=== PATIENT | male | born 1980 | race Native Hawaiian/Other Pacific Islander ===

== ENCOUNTER 2021-11-22 19:17 | Inpatient (IN) | payer OTHER ==
[2021-11-22] VITALS (7 sets, daily range): BP systolic 125–147; BP diastolic 82–95; TEMP 98.3
[~2021-11-22] VITALS: Ht 188 cm; Wt 103.9 kg
[2021-11-22 19:50] LABS: PLATELET COUNT 332 K/uL (142-355)
[2021-11-22 20:03] LABS: POTASSIUM 3.2 mmol/L (3.6-5.2)
[2021-11-23] VITALS: BP 150/97; TEMP 98.3
[2021-11-23 00:35] VITALS: BP 171/88; TEMP 98.1; Ht 188 cm; Wt 103.9 kg
[2021-11-23 04:00] VITALS: BP 119/58; TEMP 97.6
[2021-11-23 08:00] VITALS: BP 140/86; TEMP 98.1
[2021-11-23 11:30] LABS: PLATELET COUNT 300 K/uL (142-355)
[2021-11-23 11:46] LABS: POTASSIUM 3.2 mmol/L (3.6-5.2)
[2021-11-23 12:00] VITALS: BP 147/81; TEMP 98.4
== END 2021-11-23 15:50 | disposition left against medical advice (07) | DRG 684 ==
LOC: ED 19:17 → MED/SURG 21:00
PROVIDERS: Hospitalist; ADMIT Internal Medicine Endocrinology, Diabetes & Metabolism; ATTEND Internal Medicine Endocrinology, Diabetes & Metabolism
DX: N17.8 Other acute kidney failure (principal); F15.10 Other stimulant abuse, uncomplicated; M25.551 Pain in right hip; M25.561 Pain in right knee; K21.9 Gastro-esophageal reflux disease without esophagitis; I10 Essential (primary) hypertension
CPT/HCPCS: 80048; 80053; 80307; 80320; 81000; 83605; 83735; 84484; 85027; 87040; 87635; 93005; 96360; 96365; 96375; 99284; J0456; J0696; J1650; J1885; J2405; U0003